=== PATIENT | female | born 1980 | race African-American/Black ===

== ENCOUNTER 2018-08-18 11:35 | Emergency (ER) | payer BC, MEDICAID ==
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
[2018-08-18 13:03] VITALS: BP 150/86; TEMP 98; O2SAT 98
== END 2018-08-18 12:53 | disposition home or self-care (01) ==
LOC: ER 11:35
DX: S29.012A Strain of muscle and tendon of back wall of thorax, initial encounter (principal); S43.401A Unspecified sprain of right shoulder joint, initial encounter; V43.62XA Car passenger injured in collision with other type car in traffic accident, initial encounter; Y93.89 Activity, other specified; Y92.410 Unspecified street and highway as the place of occurrence of the external cause
CPT/HCPCS: 99282